=== PATIENT | female | born 1950 | race Caucasian/White ===

== ENCOUNTER 2017-09-16 14:05 | Inpatient (IN) | payer OTHER, MEDICAID ==
[~2017-09-16] VITALS: Ht 154.9 cm; Wt 108.9 kg
[~2017-09-16 14:05] MED LIST: ACET-512 PO; CARV25TA PO; CLIN300C2 PO; FURO-570 PO; HYDR-1098 PO; LACT10CA PO; LEVO0.155 PO; ROC.25 PO; ZOLP10TA1 PO
--- NOTE | 2017-09-16 14:05 | NUR ---
Patient was BIBA and taken to bed 03 via gurney per EMS.
--- NOTE | 2017-09-16 14:10 | NUR ---
Note undone in ED - 09/16/17 at 1629 by [email or web address] 67/F BIBA FOE SYNCOPE X TODAY . PT STATED MARTIN KNEE PAIN FOR A LONG TIME. HX: HYPOTHYROIDSM,HTN,RT. FOOT ULCER. DENIES N/V/D; AAOX4 WITH EVEN AND UNSTEADY GAIT; LUNGS CLEAR BL; PT DENIES ANY FEVER, CP, SOB, OR COUGH AT THIS TIME; PATIENT STATES PAIN OF 8/10 AT THIS TIME; PATIENT POSITIONED FOR COMFORT; HOB ELEVATED; BEDRAILS UP X2; BED DOWN. NEELIMA YBARRA MADE AWARE OF PT STATUS. Addendum: 09/16/17 at 1624 by [email or web address] Amendment undone in ED - 09/16/17 at 1629 by [email or web address] PT STATED " I HAD CUT WOUND STICHES TO RT FOOT A WEEK AGO; NOT STITCHES OFF YET.
--- NOTE | 2017-09-16 14:10 | NUR ---
67/F BIBA FOR SYNCOPE X TODAY . PT STATED MARTIN KNEE PAIN FOR A LONG TIME. HX: HYPOTHYROIDSM,HTN,RT. FOOT ULCER. DENIES N/V/D; AAOX4 WITH EVEN AND UNSTEADY GAIT; LUNGS CLEAR BL; PT DENIES ANY FEVER, CP, SOB, OR COUGH AT THIS TIME; PATIENT STATES PAIN OF 8/10 AT THIS TIME; PATIENT POSITIONED FOR COMFORT; HOB ELEVATED; BEDRAILS UP X2; BED DOWN. ER MADE AWARE OF PT STATUS. Addendum: 09/16/17 at 1647 by [email or web address] R BIG TOE SUTURE 1 WK AGO. Addendum: 09/16/17 at 1650 by [email or web address] PT STS " I DONT KNOW WHY THY BROUGHT ME HERE".
[2017-09-16 14:16] VITALS: BP 133/76
--- NOTE | 2017-09-16 14:19 | NUR ---
LAB AT BEDSIDE.
[2017-09-16 14:45] LABS: BASOPHILS # (AUTO) 0.1 K/uL (0.00-0.22); BASOPHILS % (AUTO) 2.1 % (0.0-2.0); EOSINOPHILS # (AUTO) 0.1 K/uL (0-0.4); EOSINOPHILS % (AUTO) 2.4 % (0.0-4.0); HEMOGLOBIN 8.3 g/dL (12.0-16.0); LYMPHOCYTES # (AUTO) 0.6 K/uL (2.5-16.5); LYMPHOCYTES % (AUTO) 10.6 % (20.5-51.1); MEAN CORPUSCULAR HEMOGLOBIN 28 pg (27-31); MEAN CORPUSCULAR HGB CONC 32 g/dL (33-37); MEAN CORPUSCULAR VOLUME 89 fL (80-94); MONOCYTES # (AUTO) 0.1 K/uL (0.8-1.0); NEUTROPHILS # (AUTO) 4.7 K/uL (1.8-7.7); NEUTROPHILS % (AUTO) 82.9 % (42.2-75.2); PLATELET COUNT (AUTO) 134 K/uL (140-450); RED BLOOD CELL COUNT(AUTO) 2.93 MIL/uL (4.20-5.40); RED CELL DISTRIBUTION WIDTH 15.5 % (11.6-13.7); WHITE BLOOD COUNT (AUTO) 5.6 K/uL (4.8-10.8)
[2017-09-16 15:13] LABS: ALBUMIN 3.8 g/dL (3.4-5.0); ANION GAP 16.5 (8-16); ASPARTATE AMINOTRANSFERASE 19 U/L (15-37); CARBON DIOXIDE 20.5 mmol/L (21-32); CHLORIDE 106 mmol/L (98-107); GFR ARICAN-AMERICAN 11 mL/min (>90); GLUCOSE 120 mg/dL (74-106); SODIUM SERUM 138 mmol/L (136-145); TOTAL BILIRUBIN 0.6 mg/dL (0.0-1.0)
[2017-09-16 15:21] LABS: UREA NITROGEN, BLOOD 93 mg/dL (7-18)
[2017-09-16 15:22] LABS: ACETAMINOPHEN < 0.5 ug/ml (10-30); CREATININE 4.9 mg/dL (0.6-1.3); SALICYLATE < 2.8 mg/dL (2.8-20.0)
--- NOTE | 2017-09-16 15:23 | NUR ---
[facility] RESULT FROM HORTENCIA ALEXIS.
--- NOTE | 2017-09-16 15:24 | NUR ---
Patient being evaluated by DR HARLEY at bedside.
[2017-09-16 15:44] LABS: BARBITURATE, URINE NEG. ng/ml (NEG <=200); BENZODIAZEPINE, URINE NEG. ng/mL (NEG <=200); CANNABINOID, URINE NEG. ng/mL (NEG <=50); COCAINE, URINE NEG. ng/mL (NEG <=300); OPIATE, URINE NEG. ng/mL (NEG <=2000); PHENCYCLIDINE SCREEN,URINE NEG. ng/mL (NEG <=25)
--- NOTE | 2017-09-16 15:57 | NUR ---
PT TAKEN TO CT
--- NOTE | 2017-09-16 16:13 | NUR ---
Patient back from CT
[2017-09-16] MEDS ORDERED: ZOLP10TA6 PO (16:48)
[2017-09-16] MEDS ORDERED: NITR0.4T2 SL (16:48)
--- NOTE | 2017-09-16 16:56 | NUR ---
Wound dressing changed to right foot, patient tolerated procedure.
--- NOTE | 2017-09-16 18:38 | NUR ---
Patient will be admitted to care of . DR GONZALEZ Admited to TELE. Will go to room 121A. Belongings list completed. Report to PRETTY GALLEGOS.
[2017-09-16 18:40] VITALS: BP 140/77
--- NOTE | 2017-09-16 18:40 | NUR ---
PATIENT ARRIVED ON UNIT VIA BED/GURNEY. TRANSFERRED TO [facility] UNIT BED. PATIENT TOLERATED PROCEDURE WELL. IN STABLE CONDITION. NO DISTRESS NOTED. RESPIRATIONS EVEN, UNLABORED, ON ROOM AIR. IV ON LEFT AC INTACT, PATENT, ON SL. HAS RIGHT FOOT TOE WOUND S/P INCISION. DRESSING IS DRY AND INTACT. ABDOMEN SOFT, NON-TENDER, OBESE. LUNGS CTA ON ALL LOBES. V/S TAKEN AND ARE STABLE. MRSA NARES TAKEN. ORIENTED PATIENT TO ROOM, CALL LIGHT WITHIN REACH. SAFETY MEASURES IN PLACE. WILL CONTINUE TO MONITOR.
--- NOTE | 2017-09-16 19:15 | NUR ---
GAVE REPORT TO CLAY WORKER NURSE FOR CONTINUITY OF CARE. PATIENT IN STABLE CONDITION.
--- NOTE | 2017-09-16 19:16 | NUR ---
RECEIVED BEDSIDE REPORT FROM DAY SHIFT NURSE ROSY RN, PT STABLE, NO DISTRESS NOTED, IV TO THE LAC 20G SL, AAO X4, R BIG TOE S/P INCISION, DRESSING CLEAN DRY AND INTACT, INITIAL ASSESSMENT DONE, ALL SAFETY PRECAUTION MET, FAMILY BY BEDSIDE, CALL LIGHT WITHIN REACH, WILL CONTINUE TO MONITOR.
[2017-09-16 19:30] VITALS: BP 129/70
--- NOTE | 2017-09-16 21:45 | NUR ---
TALKED TO DR. GONZALEZ REGARDING PT ORDERS, DR STATED HE WILL PUT IN THE ORDERS LATER. PT RESTING, NO DISTRESS NOTED, CALL LIGHT WITHIN REACH, WILL CONTINUE TO MONITOR.
[2017-09-17] VITALS (7 sets, daily range): BP systolic 120–145; BP diastolic 68–77
[2017-09-17] MEDS ORDERED: ACETAMINOPHEN 325 MG TAB PO PRN
[2017-09-17] MEDS ORDERED: ONDANSETRON 4 MG/2 ML VIAL IVP PRN
[2017-09-17] MEDS ORDERED: HYDROcodone/APAP 5/325 MG 1 TAB TAB PO PRN
--- NOTE | 2017-09-17 00:54 | NUR ---
PT REPORTED STILL HAVING PAIN, DR. CRISTAL CHUNG, PT ALLERGIC TO ASPIRIN, PAGED DR. GONZALEZ, AWAITING FOR TO CALL BACK.
--- NOTE | 2017-09-17 01:15 | NUR ---
PAGED DR GONZALEZ AGAIN, AWAITING FOR TO CALL BACK, PT AGITATED, REPORTING HAVING PAIN, FEELING HUNGRY AND WANTS HER SLEEPING MEDICATION. PT STABLE, WILL CONTINUE TO MONITOR.
--- NOTE | 2017-09-17 01:46 | NUR ---
TALKED TO PHARMACY, PHARMACY SAID IT IS OK TO GIVE NORCO TO PT, PT TOOK MEDICATION, NO DISTRESS NOTED, CALL LIGHT WITHIN REACH, WILL CONTINUE TO MONITOR.
--- NOTE | 2017-09-17 02:59 | NUR ---
HELPED PT AMBULATE TO THE BEDSIDE COMMODE, PT IS IN ALOT OF PAIN, STATING THE PAIN MEDICATION IS NOT WORKING. PT WENT BACK TO BED, NO DISTRESS NOTED, CALL LIGHT WITHIN REACH.
--- NOTE | 2017-09-17 03:21 | NUR ---
GAVE WARM COMPRESSES TO ELEVIATE PAIN TO BOTH KNEES, PT STATED FEELING BETTER. NO DISTRESS NOTED, CALL LIGHT WITHIN REACH, WILL CONTINUE TO MONITOR. Addendum: 09/17/17 at 0323 by Amy Gonzalez RN *ALLEVIATE
--- NOTE | 2017-09-17 04:42 | NUR ---
PT STILL REPORTED HAVING PAIN, AND CRYING, PAGED Bryan SUN AGAIN, AWAITING FOR TO CALL BACK. PT STABLE, NO DISTRESS NOTED, CALL LIGHT WITHIN REACH, WILL CONTINUE TO MONITOR.
--- NOTE | 2017-09-17 04:55 | NUR ---
DR GONZALEZ CALLED BACK TO PUT IN ORDERS. TORB ORDERS RECEIVED AND ENTERED, WILL CONTINUE WITH ORDERS.
[2017-09-17] MEDS ORDERED: INSULIN LISPRO SLIDING SCALE 100 UNITS/ML VIAL SUBQ PRN (05:05)
[2017-09-17] MEDS ORDERED: DEXTROSE 50% 50 ML SYR IVP PRN (05:05)
[2017-09-17] MEDS: BLOOD GLUCOSE MONITORING 1 DEV DEV FS SCH ×4 (06:03→20:40)
--- NOTE | 2017-09-17 06:37 | NUR ---
PT C/O OF EXCRUCIATING PAIN, SHE WAS CRYING AND ASKING FOR PAIN MEDICATION, REFUSED NORCO STATING IT DOES NOT WORK, ORDERED DILAUDID 1MG, STILL PENDING PER PHARMACY, OVERWRITE WITH CHARGE NURSE MICKEY OLSEN, PAIN MEDICATION GIVEN, PT TOLERATED WELL, NO DISTRESS NOTED, PT STABLE, CALL LIGHT WITHIN REACH, WILL CONTINUE TO MONITOR.
[2017-09-17] MEDS ORDERED: HYDROmorphone PFS 2 MG/ML SYR ONE (06:39)
--- NOTE | 2017-09-17 06:59 | NUR ---
PATIENT HAS BEEN SCREENED AND CATEGORIZED HIGH NUTRITION RISK. PATIENT WILL BE SEEN WITHIN 1-2 DAYS OF ADMISSION. 09/17/17-09/18/17 EVANEGLIST PORTER MS, RDN
[2017-09-17 07:03] LABS: EOSINOPHILS % (AUTO) 3.2 % (0.0-4.0); LYMPHOCYTES # (AUTO) 0.9 K/uL (2.5-16.5); MEAN CORPUSCULAR HEMOGLOBIN 28 pg (27-31)
[2017-09-17 07:10] LABS: MEAN CORPUSCULAR VOLUME 88 fL (80-94); RED CELL DISTRIBUTION WIDTH 15.1 % (11.6-13.7)
[2017-09-17 07:12] LABS: HEMATOCRIT 24.3 % (36-48); HEMOGLOBIN 7.9 g/dL (12.0-16.0); MEAN CORPUSCULAR HGB CONC 33 g/dL (33-37); RED BLOOD CELL COUNT(AUTO) 2.77 MIL/uL (4.20-5.40); WHITE BLOOD COUNT (AUTO) 4.8 K/uL (4.8-10.8)
[2017-09-17 07:13] LABS: BASOPHILS % (AUTO) 1.3 % (0.0-2.0); LYMPHOCYTES % (AUTO) 18.2 % (20.5-51.1); MONOCYTES % (AUTO) 7.7 % (1.7-9.3); NEUTROPHILS % (AUTO) 69.6 % (42.2-75.2); PLATELET COUNT (AUTO) 129 K/uL (140-450)
[2017-09-17 07:14] LABS: BASOPHILS # (AUTO) 0.1 K/uL (0.00-0.22); EOSINOPHILS # (AUTO) 0.2 K/uL (0-0.4); MONOCYTES # (AUTO) 0.4 K/uL (0.8-1.0); NEUTROPHILS # (AUTO) 3.2 K/uL (1.8-7.7)
--- NOTE | 2017-09-17 07:15 | NUR ---
ENDORSED PT TO DAY SHIFT NURSE LILIA RN, PT STABLE, NO DISTRESS NOTED, CALL LIGHT WITHIN REACH.
--- NOTE | 2017-09-17 07:20 | NUR ---
REPORT RECEIVED FROM ADJUSTMENT SUPERVISOR, PT AWAKE ALERT RESP EVEN UNLABORED ON ROOM AIR, SKIN WARM DRY COLOR WNL, PT DENIES PAIN OR DISCOMFORT, DENIES ANY IMMEDIATE NEEDS, CALL MORALES WITHIN REACH, SIDE RAILS UP, BED LOCKED IN LOW POSITION, BED ALARM ON, [facility]
[2017-09-17] MEDS: HYDROmorphone PFS 2 MG/ML SYR IVP PRN ×2 (11:15→19:43)
--- NOTE | 2017-09-17 11:15 | NUR ---
PT ASSISTED UP TO BEDSIDE COMMODE, GABBY WELL, MEDICATED WITH DILAUDID FOR FOOT PAIN, WILL CONTINUE TO MONITOR.
[2017-09-17 11:52] LABS: CREATINE KINASE MB 1.9 ng/mL (0-3.6)
--- NOTE | 2017-09-17 12:05 | NUR ---
09/17/17 RD INITIAL ASSESSMENT COMPLETED PLEASE REFER TO NUTRITION ASSESSMENT UNDER CARE ACTIVITY FOR ESTIMATED NUTRITIONAL NEEDS. RD RECOMMENDATIONS: 1. CONTINUED ON CCHO 60 GM DIET TOLERATED. 2. CONSULT RDN PRN. 3. RD WILL F/U 5-7 DAYS; LOW RISK. 4. RDN PROVIDED DIABETES DIET EDUCATION TO PATIENT; PT AND FAMILY ACCEPTED DIABETES DIET EDUCATION. HANDOUT PROVIDED. EVANGELIST PORTER, MS, RDN
[2017-09-17] MEDS ORDERED: NON-FORMULARY ITEM (Oxycodone HCl/Acetaminophen (Oxycodone-Acetaminophen 10-325) 1 TAB) PO PRN (12:20)
[2017-09-17] MEDS ORDERED: NITROGLYCERIN 0.4 MG TAB SL PRN (12:20)
--- NOTE | 2017-09-17 12:20 | NUR ---
DR GONZALEZ, A TO BEDSIDE FOR EVAL.
[2017-09-17] MEDS ORDERED: CALCITRIOL 0.25 MCG CAPLF PO SCH (12:46)
[2017-09-17] MEDS ORDERED: LEVOTHYROXINE 0.075 MG TAB PO SCH (12:53)
--- NOTE | 2017-09-17 15:13 | NUR ---
DR LISA VALDIVIA, TO FOR PODIATRY CONSULT AND CLINDAMYCIN RECEIVED.
--- NOTE | 2017-09-17 16:14 | NUR ---
VITALS DONE, BLOOD SUGAR 110, NO INSULIN NEEDED PER SLIDING SCALE, PT RESTING QUIETLY, VISITORS AT BEDSIDE, DENIES ANY IMMEDIATE NEEDS, WILL CONTINUE TO MONITOR.
[2017-09-17] MEDS: CLINDAMYCIN 150 MG CAP PO SCH ×2 (18:10→23:56)
--- NOTE | 2017-09-17 18:11 | NUR ---
PT SITTING UP EATING DINNER, PO CLINDAMYCIN GIVEN SCHEDULED, PT DENIES PAIN OR DISCOMFORT, CALL MORALES WITHIN REACH, SIDE RAILS UP, BED LOCKED IN LOW POSITION, WILL CONTINUE TO PRASANTH
--- NOTE | 2017-09-17 19:19 | NUR ---
REPORT GIVEN TO WINDOW/DISTRIBUTION CLERK NURSE, ANGELES, PT IN STABLE CONDITION.
--- NOTE | 2017-09-17 19:20 | NUR ---
RECEIVED PT IN STABLE CONDITION FROM AM NURSE.AWAKE,ALERT AND ORIENTED X4. ON TELE MONITOR. BEDREST, USES BSC WITH ASSISTANCE. JUST GOT BACK ,VOIDED. HL ON THE RT AC #20. WITH C/O PAIN ON THE RT FOOT. WITH DRESSING IN PLACED. WILL MEDICATE ORDERED. PLAN OF CARE DISCUSSED AND VERBALIZED UNDERSTANDING. BED ON LOW POSITION. CALL LIGHT PLACED WITHIN EASY REACH, FREQUENT ROUNDS NEEDED. WILL CONTINUE TO MONITOR.
--- NOTE | 2017-09-17 20:40 | NUR ---
BLOOD SUGAR WAS CHECKED RESULT 112. PROVIDED SOME SNACK. WILL CONTINUE TO MONITOR.
[2017-09-17] MEDS: CARVEDILOL 12.5 MG TAB PO SCH (20:41)
[2017-09-17] MEDS: ZOLPIDEM 10 MG TAB PO SCH (20:41)
[2017-09-17] MEDS: hydrALAZINE 25 MG TAB PO SCH (20:44)
[2017-09-17] MEDS ORDERED: ZOLPIDEM 10 MG TAB PO SCH ×2 (21:00)
--- NOTE | 2017-09-17 22:00 | NUR ---
MADE ROUNDS. PT IS ASLEEP. NO S/S FO ANY DISCOMFORT NOR PAIN NOTED.
--- NOTE | 2017-09-17 22:54 | NUR ---
PAGED DR. LISA Adams @[id number] FOR RESULT OF US CAROTID BILATERAL. CALLED BACK AND MADE AWARE. NO NEW ORDER MADE.
--- NOTE | 2017-09-18 00:05 | NUR ---
AWAKE. VITAL SIGNS TAKEN. STABLE. NO C/O PAIN AT THIS TIME. WILL CONTINUE TO MONITOR.
--- NOTE | 2017-09-18 02:00 | NUR ---
PT IS ASLEEP. NO S/S OF ANY DISCOMFORT NOR PAIN NOTED. WILL CONTINUE TO MONITOR.
[2017-09-18 04:37] VITALS: BP 133/79
[2017-09-18] MEDS: HYDROmorphone PFS 2 MG/ML SYR IVP PRN ×3 (04:40→18:50)
--- NOTE | 2017-09-18 04:40 | NUR ---
C/O PAIN ON THE RT FOOT. MEDICATED ORDERED. WILL CONTINUE TO MONITOR.
[2017-09-18] MEDS: CLINDAMYCIN 150 MG CAP PO SCH ×4 (05:46→23:57)
[2017-09-18] MEDS: LEVOTHYROXINE 0.075 MG TAB PO SCH (05:46)
[2017-09-18] MEDS: BLOOD GLUCOSE MONITORING 1 DEV DEV FS SCH ×4 (06:02→20:46)
--- NOTE | 2017-09-18 06:02 | NUR ---
BLOOD SUGAR WAS CHECKED THIS AM RESULT 99. NO INSULIN COVERAGE NEEDED.
[2017-09-18 07:05] LABS: BASOPHILS # (AUTO) 0.1 K/uL (0.00-0.22); BASOPHILS % (AUTO) 2.4 % (0.0-2.0); EOSINOPHILS # (AUTO) 0.2 K/uL (0-0.4); EOSINOPHILS % (AUTO) 3.1 % (0.0-4.0); HEMATOCRIT 24.5 % (36-48); HEMOGLOBIN 7.9 g/dL (12.0-16.0); LYMPHOCYTES # (AUTO) 0.8 K/uL (2.5-16.5); LYMPHOCYTES % (AUTO) 15.1 % (20.5-51.1); MEAN CORPUSCULAR HEMOGLOBIN 29 pg (27-31); MEAN CORPUSCULAR HGB CONC 32 g/dL (33-37); MEAN CORPUSCULAR VOLUME 88 fL (80-94); MONOCYTES # (AUTO) 0.5 K/uL (0.8-1.0); MONOCYTES % (AUTO) 9.3 % (1.7-9.3); NEUTROPHILS # (AUTO) 3.7 K/uL (1.8-7.7); NEUTROPHILS % (AUTO) 70.1 % (42.2-75.2); PLATELET COUNT (AUTO) 133 K/uL (140-450); RED BLOOD CELL COUNT(AUTO) 2.78 MIL/uL (4.20-5.40); RED CELL DISTRIBUTION WIDTH 15.7 % (11.6-13.7); WHITE BLOOD COUNT (AUTO) 5.3 K/uL (4.8-10.8)
--- NOTE | 2017-09-18 07:10 | NUR ---
ENDORSED PT IN STABLE CONDITION TO AM NURSE..
[2017-09-18 07:11] LABS: MAGNESIUM 2.2 mg/dL (1.8-2.4); PHOSPHORUS 6.4 mg/dL (2.5-4.9)
[2017-09-18 07:16] LABS: ANION GAP 13.5 (8-16); CARBON DIOXIDE 20.8 mmol/L (21-32); POTASSIUM 5.3 mmol/L (3.5-5.1)
--- NOTE | 2017-09-18 07:18 | NUR ---
REPORT RECEIVED FROM APPLICATIONS ENGINEERING MANAGER NURSE ANGELES, PT SLEEPING QUIETLY, RESP EVEN UNLABORED ON ROOM AIR, SKIN WARM DRY COLOR WNL, AROUSES EASILY TO VOICE, DENIES PAIN OR DISCOMFORT, PLAN OF CARE REVIEWED, CALL MORALES WITHIN REACH, SIDE RAILS UP, BED LOCKED IN LOW POSITION WILL CONTINUE TO MONITOR.
[2017-09-18 07:21] LABS: CREATININE 4.8 mg/dL (0.6-1.3)
[2017-09-18 08:00] VITALS: BP 118/78
[2017-09-18] MEDS ORDERED: EPOETIN ALFA 10,000 UNITS/ML VIAL SUBQ SCH ×2 (08:20→19:00)
[2017-09-18] MEDS: CALCITRIOL 0.25 MCG CAPLF PO SCH (08:38)
[2017-09-18] MEDS: CARVEDILOL 12.5 MG TAB PO SCH ×2 (08:38→20:36)
[2017-09-18] MEDS: hydrALAZINE 25 MG TAB PO SCH ×2 (08:39→20:37)
--- NOTE | 2017-09-18 08:42 | NUR ---
AM MEDS GIVEN GABBY WELL, HYDRALAZINE HELD FOR LOW BP, PT REQUESTS DILAUDID FOR PAIN, BUT NEXT DOSE NOT UNTIL 1040AM, PT OFFERED NORCO BUT PT DECLINED, PT STATES SHE PREFERS TO WAIT UNTIL DILAUDID IS DUE AT 1040, CALL MORALES WITHIN REACH, SIDE RAILS UP, WILL CONTINUE TO MOTNIOR.
[2017-09-18] MEDS ORDERED: LEVOTHYROXINE 0.075 MG TAB PO SCH (09:00)
[2017-09-18 12:00] VITALS: BP 135/69
[2017-09-18] MEDS: CALCIUM ACETATE 667 MG TAB PO SCH ×2 (13:00→18:49)
--- NOTE | 2017-09-18 14:20 | NUR ---
DR GEORGE (PODIATRY) CALLED BACK, PHOTO OF PT'S FEET SENT TO DR GEORGE REQUESTED, ORDER RECEIVED FOR DRESSING CHANGE FOR TODAY ONLY. DR GEORGE ALSO SPOKE WITH PT VIA TELEPHONE AT THIS TIME.
--- NOTE | 2017-09-18 15:55 | NUR ---
PER ORDER FROM DR GEORGE, TO RIGHT TOES WITH SUTURES, CLEANED WITH NS, PAT DRY, BETADINE APPLLIED, ADAPTIC, GAUZE, KERLIX AND PEPPER WRAP APPLIED. PT GABBY WELL.
[2017-09-18 16:00] VITALS: BP 138/78
--- NOTE | 2017-09-18 16:34 | NUR ---
BED SIDE GLUCOSE 124, NO INSULIN NEEDED PER SLIDING SCALE.
--- NOTE | 2017-09-18 18:50 | NUR ---
DILAUDID GIVEN FOR FOOT PAIN, SITTING UP VISITING WITH DAUGHTER, RESP EVEN UNLABORED, SKIN WARM DRY COLOR WNL, PT DENIES ANY OTHER IMMEDIATE NEEDS, WILL CONTINUE TO MONITOR.
--- NOTE | 2017-09-18 19:20 | NUR ---
REPORT GIVEN TO PRECISION INSTRUMENT MAKER NURSE, PT IN STABLE CONDITION.
--- NOTE | 2017-09-18 19:25 | NUR ---
RECEIVED PT IN STABLE CONDITION FROM AM NURSE. AWAKE,ALERT AND ORIENTED X4. ON TELE MONITOR. BEDREST . UP WITH ASSISTANCE TO BSC. NO C/O ANY PAIN AT THIS TIME. HL ON THE LT HAND #22. CLEAR AND PATENT. RT FOOT WITH DRESSING DRY AND INTACT. PLAN OF CARE DISCUSSED AND VERBALIZED UNDERSTANDING . BED ON LOW POSITION. FREQUENT ROUNDS NEEDED. CALL LIGHT PLACED WITHIN EASY REACH. WILL CONTINUE TO MONITOR.
[2017-09-18 19:45] VITALS: BP 141/82
[2017-09-18] MEDS: ZOLPIDEM 10 MG TAB PO SCH (20:37)
--- NOTE | 2017-09-18 20:46 | NUR ---
BLOOD SUGAR WAS CHECKED RESULT 123. NO INSULIN COVERAGE NEEDED. PROVIDED WITH SOME SNACK . WILL CONTINUE TO MONITOR.
--- NOTE | 2017-09-18 21:06 | NUR ---
RESULT OF RENAL US IN. PAGED DR. LISA Adams CALLED BACK, MADE AWARE OF THE RESULT . NO NEW ORDER GIVEN.
--- NOTE | 2017-09-18 22:30 | NUR ---
MADE ROUNDS. PT STILL AWAKE. ON HER CELL PHONE. SHE SAID SHE IS READY TO GO TO SLEEP. BED PUT IN COMFORTABLE POSITION.
[2017-09-19] VITALS (7 sets, daily range): BP systolic 122–150; BP diastolic 68–84
--- NOTE | 2017-09-19 00:30 | NUR ---
ASSISTED UP TO THE BSC. VOIDED . TOLERATED WELL. BACK TO BED IN COMFORTABLE POSITION.
--- NOTE | 2017-09-19 02:00 | NUR ---
MADE ROUNDS. PT SLEEPING WELL. NO S/S OF ANY DISCOMFORT NOTED.
[2017-09-19] MEDS: HYDROmorphone PFS 2 MG/ML SYR IVP PRN ×4 (03:50→23:56)
[2017-09-19] MEDS: CLINDAMYCIN 150 MG CAP PO SCH ×4 (05:32→23:47)
[2017-09-19] MEDS: LEVOTHYROXINE 0.075 MG TAB PO SCH (05:32)
[2017-09-19] MEDS: BLOOD GLUCOSE MONITORING 1 DEV DEV FS SCH ×4 (06:09→21:17)
--- NOTE | 2017-09-19 06:10 | NUR ---
BLOOD SUGAR WAS CHECKED TOMÁS Erazo RESULT 113. NO INSULIN NEEDED.
[2017-09-19 06:18] LABS: BASOPHILS # (AUTO) 0.1 K/uL (0.00-0.22); BASOPHILS % (AUTO) 2.2 % (0.0-2.0); EOSINOPHILS # (AUTO) 0.2 K/uL (0-0.4); EOSINOPHILS % (AUTO) 3.2 % (0.0-4.0); HEMATOCRIT 24.6 % (36-48); HEMOGLOBIN 7.8 g/dL (12.0-16.0); LYMPHOCYTES # (AUTO) 0.8 K/uL (2.5-16.5); LYMPHOCYTES % (AUTO) 12.7 % (20.5-51.1); MEAN CORPUSCULAR HEMOGLOBIN 28 pg (27-31); MEAN CORPUSCULAR HGB CONC 32 g/dL (33-37); MEAN CORPUSCULAR VOLUME 88 fL (80-94); MONOCYTES # (AUTO) 0.6 K/uL (0.8-1.0); MONOCYTES % (AUTO) 9.6 % (1.7-9.3); NEUTROPHILS # (AUTO) 4.5 K/uL (1.8-7.7); NEUTROPHILS % (AUTO) 72.3 % (42.2-75.2); PLATELET COUNT (AUTO) 125 K/uL (140-450); RED BLOOD CELL COUNT(AUTO) 2.78 MIL/uL (4.20-5.40); WHITE BLOOD COUNT (AUTO) 6.2 K/uL (4.8-10.8)
[2017-09-19 06:37] LABS: MAGNESIUM 2.2 mg/dL (1.8-2.4); PHOSPHORUS 6.2 mg/dL (2.5-4.9)
[2017-09-19 06:38] LABS: ANION GAP 15.1 (8-16); CARBON DIOXIDE 21.3 mmol/L (21-32); POTASSIUM 5.4 mmol/L (3.5-5.1)
[2017-09-19 06:49] LABS: CREATININE 5.1 mg/dL (0.6-1.3)
[2017-09-19] MEDS ORDERED: SODIUM POLYSTYRENE 15 GM/60 ML UDBTL PO SCH (07:20)
--- NOTE | 2017-09-19 07:20 | NUR ---
CRITICAL VALUE REPORTED TO MD. WITH ORDER RECEIVED. ENDORSED PT IN STABLE CONDITION TO AM NURSE.
--- NOTE | 2017-09-19 07:21 | NUR ---
RECEIVED REPORT FROM POST OFFICE MARKUP CLERK NURSE. PATIENT LYING IN BED SLEEPING, AROUSABLE BY VOICE. NO DISTRESS NOTED. DENIES ANY PAIN AT THIS TIME. RESPIRATIONS EVEN, UNLABORED, ON ROOM AIR. AAOX4, CALM, COOPERATIVE, SKIN COLOR APPROPRIATE TO ETHNICITY, WARM TO TOUCH. HAS RIGHT TOE WOUND WITH DRESSING DRY AND INTACT. DRESSING WAS CHANGED YESTERDAY BY MD. LUNGS CTA ON ALL LOBES. ABDOMEN SOFT, OBESE. PATIENT ABLE TO AMBULATE WITH ASSISTANCE TO BEDSIDE COMMODE. IV SITE IS INTACT, PATENT, ON SALINE LOCK. REVIEWED PLAN OF CARE WITH PATIENT. PATIENT VERBALIZED UNDERSTANDING. SAFETY MEASURES IN PLACE, CALL LIGHT WITHIN REACH, FALL PREVENTIONS IN PLACE. WILL CONTINUE TO MONITOR.
[2017-09-19] MEDS: CALCITRIOL 0.25 MCG CAPLF PO SCH (08:39)
[2017-09-19] MEDS: hydrALAZINE 25 MG TAB PO SCH ×2 (08:39→21:18)
[2017-09-19] MEDS: NACL 0.9% 1,000 ML IV SCH (08:39)
[2017-09-19] MEDS: CALCIUM ACETATE 667 MG TAB PO SCH ×3 (08:39→16:53)
[2017-09-19] MEDS: CARVEDILOL 12.5 MG TAB PO SCH ×2 (08:40→21:18)
--- NOTE | 2017-09-19 08:52 | NUR ---
PATIENT SITTING IN BED WATCHING TV WITH BREAKFAST TRAY IN FRONT. NO DISTRESS NOTED. DENIES ANY PAIN AT THIS TIME. SCHEDULED MEDICATIONS DUE GIVEN. ASSISTED PATIENT TO BEDSIDE COMMODE AND BACK TO BED. COLLECTED URINE SAMPLE FOR RANDOM SODIUM UA ORDERED BY MD. SAFETY MEASURES IN PLACE, CALL LIGHT WITHIN REACH, FALL PREVENTIONS IN PLACE. WILL CONTINUE TO MONITOR.
--- NOTE | 2017-09-19 10:00 | NUR ---
PATIENT COMPLAINS OF RIGHT TOE PAIN 05/05. MEDICATED WITH DILAUDID PER ORDERS. SAFETY MEASURES IN PLACE, CALL LIGHT WITHIN REACH. WILL CONTINUE TO MONITOR.
--- NOTE | 2017-09-19 11:19 | NUR ---
PATIENT LYING IN BED SLEEPING, ARSOUABLE BY VOICE. NO DISTRESS NOTED. PAIN WITHIN TOLERABLE AT THIS TIME. CONDITION UNCHANGED. SAFETY MEASURES IN PLACE, CALL LIGHT WITHIN REACH. WILL CONTINUE TO MONITOR.
--- NOTE | 2017-09-19 12:00 | NUR ---
PATIENT SITTING IN BED WITH LUNCH TRAY IN FRONT. NO DISTRESS NOTED. DENIES ANY PAIN. CONDITION UNCHANGED. SCHEDULED MEDICATIONS DUE GIVEN. SAFETY MEASURES IN PLACE, CALL LIGHT WITHIN REACH. WILL CONTINUE TO MONITOR.
--- NOTE | 2017-09-19 12:25 | NUR ---
DR. GONZALEZ, A AT BEDSIDE REVIEWING PLAN OF CARE WITH PATIENT. WILL CONTINUE TO MONITOR.
[2017-09-19] MEDS ORDERED: PHO667 PO (12:30)
--- NOTE | 2017-09-19 13:45 | NUR ---
PATIENT LYING IN BED SLEEPING, AROUSABLE BY VOICE. NO DISTRESS NOTED. PAIN WITHIN TOLERABLE AT THIS TIME. CONDITION UNCHANGED. SAFETY MEASURES IN PLACE, CALL LIGHT WITHIN REACH. WILL CONTINUE TO MONITOR.
--- NOTE | 2017-09-19 17:39 | NUR ---
PATIENT SITTING IN BED WATCHING TV. NO DISTRESS NOTED. DENIES ANY PAIN AT THIS TIME. CONDITION UNCHANGED. SCHEDULED MEDICATIONS DUE GIVEN. CONTINUES TO HAVE INTERMITTENT PRODUCTIVE COUGHING. SAFETY MEASURES IN PLACE, CALL LIGHT WITHIN REACH. WILL CONTINUE TO MONITOR.
--- NOTE | 2017-09-19 18:24 | NUR ---
ASSISTED PATIENT TO BEDSIDE COMMODE AND BACK TO BED. SAFETY MEASURES IN PLACE, CALL LIGHT WITHIN REACH. WILL CONTINUE TO MONITOR.
--- NOTE | 2017-09-19 19:16 | NUR ---
GAVE REPORT TO TALENT SCOUT NURSE FOR CONTINUITY OF CARE. PATIENT IN STABLE CONDITION.
--- NOTE | 2017-09-19 19:21 | NUR ---
RECEIVED FROM AM RN IN BED AWAKE AND WATCHING TV. ABLE TO VERBALIZE NEEDS WELL IN CHINESE. A/O X 4. ROM X 4. TELEMETRY MONITORING. CALL LIGHT WITH IN REACH AND ENCOURAGED TO CALL FOR ANY HELP SHE MAY NEED OR IF SHE HAS PAIN. IVF SITE TO LEFT HAND #22.
[2017-09-19] MEDS: ZOLPIDEM 10 MG TAB PO SCH (21:17)
--- NOTE | 2017-09-19 21:19 | NUR ---
BLOOD SUGAR PER FINGERSTICK 101. REFUSED TO HAVE REGULAR INSULIN. STATED "NO INSULIN FOR ME BECAUSE IT WILL GO DOWN IN THE MORNING" ALERT AND ORIENTED X 4 . CLEAR SPEECH. CALL LIGHT WITH IN REACH AT ALL TIMES.
--- NOTE | 2017-09-20 00:01 | NUR ---
MEDICATED WITH PAIN RELIEVER REQUESTED. COMPLAINED OF FOOT PAIN . ABT P.O. CLEOCIN GIVEN AND TOLERATED WELL. TELEMETRY MONITORING. ABLE TO VERBALIZE NEEDS WELL. CALL LIGHT WITH IN REACH .
--- NOTE | 2017-09-20 03:13 | NUR ---
SLEEPING. NO RESTLESSNESS NOTED. CALL LIGHT WITH INN REACH. TELEMETRY MONITORING.
[2017-09-20] MEDS: NACL 0.9% 1,000 ML IV SCH (04:55)
[2017-09-20 05:30] VITALS: BP 134/80
[2017-09-20] MEDS: CLINDAMYCIN 150 MG CAP PO SCH ×3 (05:46→17:30)
[2017-09-20] MEDS: LEVOTHYROXINE 0.075 MG TAB PO SCH (05:46)
[2017-09-20] MEDS: HYDROmorphone PFS 2 MG/ML SYR IVP PRN ×2 (05:47→12:32)
[2017-09-20] MEDS: BLOOD GLUCOSE MONITORING 1 DEV DEV FS SCH ×3 (05:51→16:50)
--- NOTE | 2017-09-20 05:52 | NUR ---
PT. AWAKE AT THIS TIME AND REQUESTED FOR PAIN RELIEVER. STATED THAT HER KNEE AND TOE HURTS. MEDICATED REQUESTED. TELEMETRY MONITORING. BLOOD SUGAR CHECK PER FINGERSTICK 109.
[2017-09-20 06:28] LABS: BASOPHILS # (AUTO) 0.1 K/uL (0.00-0.22); BASOPHILS % (AUTO) 0.6 % (0.0-2.0); EOSINOPHILS # (AUTO) 0.2 K/uL (0-0.4); HEMATOCRIT 26.2 % (36-48); HEMOGLOBIN 8.3 g/dL (12.0-16.0); LYMPHOCYTES # (AUTO) 0.4 K/uL (2.5-16.5); LYMPHOCYTES % (AUTO) 4.7 % (20.5-51.1); MEAN CORPUSCULAR HEMOGLOBIN 28 pg (27-31); MEAN CORPUSCULAR HGB CONC 32 g/dL (33-37); MEAN CORPUSCULAR VOLUME 89 fL (80-94); MONOCYTES # (AUTO) 0.7 K/uL (0.8-1.0); MONOCYTES % (AUTO) 7.8 % (1.7-9.3); NEUTROPHILS # (AUTO) 7.4 K/uL (1.8-7.7); NEUTROPHILS % (AUTO) 84.9 % (42.2-75.2); PLATELET COUNT (AUTO) 132 K/uL (140-450); RED BLOOD CELL COUNT(AUTO) 2.96 MIL/uL (4.20-5.40); RED CELL DISTRIBUTION WIDTH 14.5 % (11.6-13.7); WHITE BLOOD COUNT (AUTO) 8.8 K/uL (4.8-10.8)
[2017-09-20 06:41] LABS: ANION GAP 16.1 (8-16); CARBON DIOXIDE 20.9 mmol/L (21-32)
[2017-09-20 06:43] LABS: PHOSPHORUS 5.1 mg/dL (2.5-4.9)
--- NOTE | 2017-09-20 07:23 | NUR ---
ENDORSED TO THE NEXT RN FOR CONTINUITY OF CARE. SLEEPING AT THIS TIME. TELEMETRY MONITORING. AFEBRILE. ABLE TO USE CALL LIGHT FOR HELP.
--- NOTE | 2017-09-20 07:24 | NUR ---
RECEIVED REPORT FROM HOSE MENDER NURSE. PATIENT LYING IN BED SLEEPING, AROUSABLE BY VOICE. NO DISTRESS NOTED. DENIES ANY PAIN AT THIS TIME. RESPIRATIONS EVEN, UNLABORED, ON ROOM AIR. AAOX4, CALM, COOPERATIVE, SKIN COLOR APPROPRIATE TO ETHNICITY, WARM TO TOUCH. HAS RIGHT TOE WOUND WITH DRESSING DRY AND INTACT. HAS INTERMITTENT PRODUCTIVE COUGH. LUNGS CTA ON ALL LOBES. ABDOMEN SOFT, OBESE. PATIENT ABLE TO AMBULATE WITH ASSISTANCE TO BEDSIDE COMMODE. IV SITE IS INTACT, PATENT, AND INFUSING IVF PER ORDERS. REVIEWED PLAN OF CARE WITH PATIENT. PATIENT VERBALIZED UNDERSTANDING. SAFETY MEASURES IN PLACE, CALL LIGHT WITHIN REACH, FALL PREVENTIONS IN PLACE. WILL CONTINUE TO MONITOR.
[2017-09-20 07:58] LABS: CREATININE 4.7 mg/dL (0.6-1.3)
[2017-09-20 08:00] VITALS: BP 134/62
[2017-09-20] MEDS ORDERED: EPOETIN ALFA 10,000 UNITS/ML VIAL SUBQ SCH (08:56)
[2017-09-20] MEDS ORDERED: LACTULOSE 20 GM/30 ML UDC PO SCH (08:57)
[2017-09-20] MEDS: CALCIUM ACETATE 667 MG TAB PO SCH ×3 (09:29→17:03)
[2017-09-20] MEDS: CALCITRIOL 0.25 MCG CAPLF PO SCH (09:30)
[2017-09-20] MEDS: hydrALAZINE 25 MG TAB PO SCH (09:30)
[2017-09-20] MEDS: CARVEDILOL 12.5 MG TAB PO SCH (09:30)
--- NOTE | 2017-09-20 09:35 | NUR ---
PATIENT SITTING IN BED WATCHING TV. NO DISTRESS NOTED. DENIES ANY PAIN AT THIS TIME. SCHEDULED MEDICATIONS DUE GIVEN. SAFETY MEASURES IN PLACE, CALL LIGHT WITHIN REACH. WILL CONTINUE TO MONITOR.
[2017-09-20 12:00] VITALS: BP 140/75
--- NOTE | 2017-09-20 12:30 | NUR ---
PATIENT SITTING IN BED. ASSISTED PATIENT TO BEDSIDE COMMODE AND BACK TO BED. SCHEDULED MEDICATIONS DUE GIVEN. COMPLAINTS OF PRODUCTIVE COUGH. WILL NOTIFY MD. PATIENT IN AGITATED MOOD D/T RIGHT FOOT PAIN. SAFETY MEASURES IN PLACE, CALL LIGHT WITHIN REACH, FALL PRECAUTIONS IN PLACE. WILL CONTINUE TO MONITOR.
--- NOTE | 2017-09-20 13:10 | NUR ---
PATIENT SITTING IN BED WATCHING TV. NO DISTRESS NOTED. PAIN WITHIN TOLERABLE AT THIS TIME. PATIENT TO BE DISCHARGED LATER TODAY WITH HOME HEALTH. WOUND DRESSING CHANGED ON RIGHT BIG TOE PER MD ORDERS. NO DRAINAGE NOTED, NO S/S OF INFECTION NOTED ON WOUND. SUTURES INTACT. SAFETY MEASURES IN PLACE, CALL LIGHT WITHIN REACH. WILL CONTINUE TO MONITOR.
--- NOTE | 2017-09-20 15:08 | NUR ---
CM NOTE SPOKE TO CHARGE NURSE MENJIVAR TO CLARIFY DR. GONZAELZ'S DISCHARGE PLANNING ORDER. FAXED INQUIRY TO [facility] [phone] MABEL PH# [phone] AND GAVE HER THE NUMBER TO THE NURSING FLOOR WHERE PATIENT IS FOR ANY CLARIFICATIONS REGARDING THE ORDER AND TO LET THEM KNOW IF THEY CAN TAKE THE PATIENT OR NOT. CHARGE NURSE MENJIVAR AWARE.
[2017-09-20 16:00] VITALS: BP 134/77
--- NOTE | 2017-09-20 16:00 | NUR ---
COUNTS INCLUDE 234 BEDS AT THE [facility] CALLED AND ACCEPTED PATIENT. FAXED WOUND CARE ORDERS TO [facility] PER ROSA REQUEST. [facility] TO CALL PATIENT TONIGHT OR TOMORROW TO SCHEDULE A HOME VISIT FOR WOUND CARE. WILL CONTINUE TO MONITOR.
--- NOTE | 2017-09-20 17:50 | NUR ---
PATIENT SITTING IN BED TALKING ON THE PHONE WITH FAMILY MEMBER. NO DISTRESS NOTED. DENIES ANY PAIN. PATIENT SAYS FAMILY MEMBER WILL COME PICK HER UP TO TAKE HOME AROUND 1900. SCHEDULED MEDICATIONS DUE GIVEN. SAFETY MEASURES IN PLACE, CALL LIGHT WITHIN REACH. WILL CONTINUE TO MONITOR.
--- NOTE | 2017-09-20 18:00 | NUR ---
DISCHARGE INSTRUCTIONS/EDUCATIONS PROVIDED TO PATIENT, FOLLOW-UP VISITS WITH MD, NEW/CHANGED MEDICATIONS, AND DISEASE PROCESS OF SYNCOPY. ANSWERED ALL OF PATIENT'S QUESTIONS REGARDING DISCHARGE AND HOME HEALTH. PATIENT VERBALIZED COMPLETE UNDERSTANDING. IV SITE REMOVED WITH MINIMAL BLOOD AND LUMEN COMPLETELY INTACT. ID BANDS REMOVED. AWAITING FOR FAMILY MEMBER TO ARRIVE ON UNIT TO TAKE PATIENT HOME VIA PRIVATE VEHICLE.
--- NOTE | 2017-09-20 19:10 | NUR ---
PATIENT'S FAMILY MEMBER ARRIVED ON UNIT TO TAKE PATIENT HOME. ALL BELONGINGS WITH PATIENT. ESCORTED PATIENT DOWN TO LOBBY VIA WHEELCHAIR AND ASSISTED PATIENT FROM WHEELCHAIR TO FAMILY'S CAR. PATIENT DISCHARGED HOME AT THIS TIME VIA PRIVATE VEHICLE WITH HOME HEALTH FOLLOW UP IN STABLE CONDITION.
--- NOTE | 2017-09-21 10:00 | NUR ---
I attempted to contact patient at cell phone to discuss and confirm Primary health provider information. Patient did not respond call and Production Line Technician left her a Voice mail MSG and request to call back.
--- NOTE | 2017-09-21 10:05 | NUR ---
I call Patients Daughter to discuss and confirm Patient's MD primary health provider. Patient's daughter Lesli stated that she is at work and that her mother (patient) probably was sleeping if she do not answer call to please call her back in a later time at cell. outreach and education social worker agreed to call back later and ended call.
--- NOTE | 2017-09-21 11:30 | NUR ---
I contact patient at cell phone to confirm primary nuzhat provider and inform her of scheduled appointment for her to follow up after discharge from [facility] on 09/22/17 at 3:15pm. Patient confirmed PHP Dr. Perla and agreed to attend to scheduled appointment by Director Of Analytical Development.
--- NOTE | 2017-09-21 13:50 | NUR ---
I attempted to contact patient at cell phone to discuss follow up care needs, after discharge. Patient was not responding and Reinforcing Iron And Rebar Workers left her a Voice mail MSG with request to call back.
--- NOTE | 2017-09-21 14:15 | NUR ---
LATE ENTRY CM NOTE PER GLENIS CASTILLO, PATIENT'S PCP IS DR. RECINOS PH# [phone]. SPOKE WITH RUTH PH# [phone] OF [facility] TO SCHEDULE PATIENT FOLLOW UP WITH PCP DR. RECINOS IN HIS [facility]. PATIENT SCHEDULED TO FOLLOW UP WITH PCP ON SEP 22, 15:15 TIME IN HIS [facility]. PER RUTH, PATIENT HAS NO DATA OF SEEING A LINUX KERNEL DEVELOPER BEFORE. SPOKE WITH ANNA PH# [phone] OF [facility] TO SCHEDULE PATIENT TO SEE LINUX KERNEL DEVELOPER. PER ANNA, SHE WILL LEAVE A MESSAGE FOR DR. RECINOS TO REFER PATIENT TO A LINUX KERNEL DEVELOPER. GLENIS CASTILLO AWARE.
== END 2017-09-20 19:10 | disposition home health service (06) | DRG 683 ==
LOC: MED 14:05 → MTU 17:19
PROVIDERS: ADMIT Preventive Medicine Preventive Medicine/Occupational Environmental Medicine; ATTEND Preventive Medicine Preventive Medicine/Occupational Environmental Medicine
DX: N17.9 Acute kidney failure, unspecified (principal); Z68.42 Body mass index [BMI] 45.0-49.9, adult; E11.22 Type 2 diabetes mellitus with diabetic chronic kidney disease; D69.6 Thrombocytopenia, unspecified; E11.42 Type 2 diabetes mellitus with diabetic polyneuropathy; E11.51 Type 2 diabetes mellitus with diabetic peripheral angiopathy without gangrene; I13.0 Hypertensive heart and chronic kidney disease with heart failure and stage 1 through stage 4 chronic kidney disease, or unspecified chronic kidney disease; E86.1 Hypovolemia; E11.65 Type 2 diabetes mellitus with hyperglycemia; J45.909 Unspecified asthma, uncomplicated; I25.10 Atherosclerotic heart disease of native coronary artery without angina pectoris; N18.9 Chronic kidney disease, unspecified; I50.9 Heart failure, unspecified; G47.00 Insomnia, unspecified; G89.4 Chronic pain syndrome; E03.9 Hypothyroidism, unspecified; E66.01 Morbid (severe) obesity due to excess calories; M06.9 Rheumatoid arthritis, unspecified; R32 Unspecified urinary incontinence; Z88.6 Allergy status to analgesic agent; Z88.7 Allergy status to serum and vaccine; I25.2 Old myocardial infarction; Z95.5 Presence of coronary angioplasty implant and graft; Z99.2 Dependence on renal dialysis; Z85.42 Personal history of malignant neoplasm of other parts of uterus
CPT/HCPCS: 36415; 70450; 76770; 80048; 80053; 80305; 82550; 82553; 82948; 83735; 84100; 84300; 84484; 85025; 87081; 93005; 93880; 99285; C1758; G0480; G0482; J0885; J1170; J1815; J7030; Q0092